=== PATIENT | female | born 1980 | race African-American/Black ===

== ENCOUNTER 2016-11-15 19:45 | Emergency (ER) | payer BC, OTHER ==
[~2016-11-15] VITALS: Ht 167.6 cm; Wt 90.7 kg
--- NOTE | ~2016-11-15 | EKG ---
[place], [place] ELECTROCARDIOGRAM REPORT NAME: RAFAEL HALE UNIT #: [id number] ROOM: DOCTOR: FRANCISCO DUNBAR MD BIRTHDATE: [birth year] DOS: 11/15/2016 TIME: 20:04:56 RATE AND RHYTHM: Sinus tachycardia at 108 beats per minute. MN interval 160 milliseconds, QRS duration 95 milliseconds, corrected QT interval 436 milliseconds, QRS axis 18. IMPRESSION: Normal EKG except for mild sinus tachycardia. FRANCISCO DUNBAR MD CM:EKGRPT:ELECTROCARDIOGRAM REPORT [id number] FRANCISCO DUNBAR MD
[~2016-11-15 19:45] MED LIST: ATIVAN1 MG PO; CIPRO500 MG PO; CIPROFLOXACIN500 MG PO; COLACE100 MG PO; DITROPAN5 MG PO; HYDROCODONE BIT1 T11 PO; MOTRIN800 MG PO; PERCOCET 325 MG1 TA2 PO; PREVACID SOLUTA30 MG PO; PROTONIX40 MG PO; REGLAN10 MG PO; ULTRAM50 MG PO; VICO75300 PO; VICODIN 5/500 505 MG PO; VICODIN1 TAB PO; VOLTAREN50 MG PO; ZOFRAN ODT4 MG SL; ZOFRAN ODT8 MG PO; ZOFRAN4 MG PO
[2016-11-15] MEDS ORDERED: ELMIRON100 MG PO (20:18)
[2016-11-15] MEDS ORDERED: PROMETHAZINE25 M1 PO (20:19)
[2016-11-15] MEDS ORDERED: URIBEL CAPSULE1 EACH PO (20:19)
[2016-11-15] MEDS ORDERED: MYRBETRIQ25 M1 PO (20:19)
[2016-11-15 20:21] LABS: BASO % 0.3 % (0.0-1.0); EOS # 0.1 10*3/uL (0.0-0.4); EOS % 0.9 % (1.0-4.0); HEMATOCRIT 37.3 % (37.0-47.0); HEMOGLOBIN 11.8 g/dl (12.0-16.0); LYMPH # 3.3 10*3/uL (1.3-4.4); LYMPH % 42.3 % (27.0-41.0); MEAN CELL VOLUME 87.4 fl (81.0-99.0); MEAN CORPUSCULAR HGB 27.6 pg (27.0-31.0); MEAN CORPUSCULAR HGB CONC 31.6 g/dl (33.0-37.0); MEAN PLATELET VOLUME 8.8 fl (9.6-12.3); MONO # 0.6 10*3/uL (0.1-1.0); NEUT # 3.8 10*3/uL (2.3-7.9); NEUT % 48.1 % (47.0-73.0); PLATELET COUNT AUTOMATED 370 10*3/uL (130-400); RED BLOOD COUNT 4.27 10*6/uL (4.10-5.10); RED CELL DISTRI WIDTH 13.5 % (0-14.5); WHITE BLOOD COUNT 7.8 10*3/uL (4.8-10.8)
[2016-11-15 20:32] LABS: BUN 7 mg/dl (7-24); CARBON DIOXIDE 23 mmol/L (21-32); CHLORIDE 104 mmol/L (98-107); EST GLOM FILT AFRICAN AMERICAN > 60 ml/min; GLUCOSE 226 mg/dL (65-99); SODIUM 139 mmol/L (136-145)
[2016-11-15 20:47] LABS: BILIRUBIN 1+ (NEGATIVE); BLOOD 1+ (NEGATIVE); CLARITY CLEAR (CLEAR); COLOR GREEN (YELLOW); GLUCOSE 2+ (NEGATIVE); KETONE 1+ (NEGATIVE); NITRITE NEGATIVE (NEGATIVE); PH 6.5 (5.0-9.0); PROTEIN TRACE (NEGATIVE); SPECIFIC GRAVITY 1.025 (1.005-1.030); UROBILINOGEN 0.2 E.U./dl (0.2-1.0)
[2016-11-15 20:55] LABS: LEUKO ESTERASE NEGATIVE (NEGATIVE); RBC 16-20 rbc/hpf (0-2)
[2016-11-15 20:56] LABS: CALCIUM OXALATE CRYSTALS 1+; MUCOUS TRACE; URINE REFLEX COMMENT YES (NO)
[2016-11-15 22:28] VITALS: BP 126/77
[2016-11-15] MEDS ORDERED: ZOFRAN4 MG PO (22:42)
[2016-11-15 22:56] LABS: HEMOGLOBIN A1c 5.7 % (4.8-5.6)
== END 2016-11-15 22:44 | disposition home or self-care (01) ==
LOC: ED 19:45
PROVIDERS: Emergency Medicine
DX: R73.9 Hyperglycemia, unspecified (principal); F41.9 Anxiety disorder, unspecified; E87.6 Hypokalemia; R10.30 Lower abdominal pain, unspecified

== ENCOUNTER 2018-03-29 18:16 | Emergency (ER) | payer BC ==
[~2018-03-29] VITALS: Ht 170.1 cm; Wt 90.7 kg
[~2018-03-29 18:16] MED LIST changes: +ELMIRON100 MG PO; +MYRBETRIQ25 M1 PO; +PROMETHAZINE25 M1 PO; +URIBEL CAPSULE1 EACH PO
[2018-03-29 18:45] LABS: BASO % 0.3 % (0.0-1.0); EOS # 0.1 10*3/uL (0.0-0.4); EOS % 0.6 % (1.0-4.0); HEMATOCRIT 36.3 % (37.0-47.0); HEMOGLOBIN 11.7 g/dl (12.0-16.0); LYMPH # 3.5 10*3/uL (1.3-4.4); LYMPH % 38.4 % (27.0-41.0); MEAN CELL VOLUME 86.8 fl (81.0-99.0); MEAN CORPUSCULAR HGB CONC 32.2 g/dl (33.0-37.0); MEAN PLATELET VOLUME 8.6 fl (9.6-12.3); MONO # 0.8 10*3/uL (0.1-1.0); MONO % 8.6 % (3.0-9.0); NEUT # 4.7 10*3/uL (2.3-7.9); NEUT % 51.9 % (47.0-73.0); PLATELET COUNT AUTOMATED 311 10*3/uL (130-400); RED BLOOD COUNT 4.18 10*6/uL (4.10-5.10); RED CELL DISTRI WIDTH 13.3 % (0-14.5)
[2018-03-29 18:56] LABS: INTERNATIONAL NORM RATIO 0.9 (2.0-3.5)
[2018-03-29 19:01] LABS: ALBUMIN 3.5 gm/dl (3.1-4.5); ALKALINE PHOSPHATASE 68 U/L (45-117); BUN 13 mg/dl (7-24); CHLORIDE 106 mmol/L (98-107); CREATININE 0.79 mg/dL (0.55-1.02); SGOT/AST 21 IU/L (3-35); SGPT/ALT 34 U/L (12-78); SODIUM 139 mmol/L (136-145); TOTAL PROTEIN 6.9 gm/dL (6.4-8.2)
[2018-03-29 19:03] LABS: B-hCG (QUALITATIVE) NEGATIVE (NEGATIVE); TROPONIN I < 0.015 ng/ml (<0.045)
[2018-03-29 19:35] VITALS: BP 137/84
[2018-03-29] MEDS ORDERED: NORCO 5-325 TA1 EACH PO (20:54)
== END 2018-03-29 21:02 | disposition home or self-care (01) ==
LOC: ED 18:16
PROVIDERS: Physician Assistant
DX: R00.0 Tachycardia, unspecified (principal); M77.52 Other enthesopathy of left foot and ankle; R42 Dizziness and giddiness

== ENCOUNTER → 2018-04-08 | Outpatient (CLI) | payer BC ==
[~2018-04-08] MED LIST changes: +NORCO 5-325 TA1 EACH PO
== END | disposition home or self-care (01) ==
LOC: CARD 09:26
DX: R00.0 Tachycardia, unspecified (principal)

== ENCOUNTER 2021-04-21 12:22 | Emergency (ER) | payer OTHER ==
[~2021-04-21] VITALS: Ht 167.6 cm; Wt 95.3 kg
[2021-04-21 12:27] VITALS: BP 166/92
[2021-04-21] MEDS ORDERED: PREDNISONE20 M1 PO (14:29)
[2021-04-21] MEDS ORDERED: PROVENTIL HFA6.7 GM INH (14:29)
== END 2021-04-21 14:39 | disposition home or self-care (01) ==
LOC: ED 12:22
DX: J40 Bronchitis, not specified as acute or chronic (principal); Z20.822 Contact with and (suspected) exposure to COVID-19; Z98.890 Other specified postprocedural states; Z98.51 Tubal ligation status; Z95.5 Presence of coronary angioplasty implant and graft

== ENCOUNTER → 2024-03-04 | Outpatient (CLI) | payer BC ==
[~2024-03-04] MED LIST changes: +ATENOLOL25 MG PO; +BUSPIRONE10 MG PO; +CELEXA40 MG PO; +METRONIDAZOLE500 M1 PO; +PREDNISONE20 M1 PO; +PROVENTIL HFA6.7 GM INH
[2024-03-04 10:00] LABS: BILIRUBIN Negative (Negative); BLOOD 2+ (Negative); CLARITY Clear (Clear); COLOR Yellow (Yellow); GLUCOSE Negative (Negative); KETONE Negative (Negative); LEUKO ESTERASE 1+ (Negative); NITRITE Negative (Negative); SPECIFIC GRAVITY 1.025 (1.001-1.030)
[2024-03-04 10:19] LABS: BACTERIA 2+; MUCOUS 1+; RBC 31-40 rbc/hpf (0-2); WBC 31-40 wbc/hpf (0-5)
[2024-03-04 10:23] LABS: ALKALINE PHOSPHATASE 64 U/L (46-116); BUN 10 mg/dl (9-23); CHLORIDE 105 mmol/L (98-107); POTASSIUM 3.8 mmol/L (3.4-5.1); SGPT/ALT 17 U/L (5-49); TOTAL PROTEIN 6.9 gm/dL (6.0-8.0)
== END | disposition home or self-care (01) ==
LOC: LAB 09:28
PROVIDERS: ATTEND Surgery
DX: N20.0 Calculus of kidney (principal); R20.2 Paresthesia of skin; F43.9 Reaction to severe stress, unspecified

== ENCOUNTER → 2024-03-15 | Outpatient (CLI) | payer BC ==
[~2024-03-15] MED LIST changes: +Technetium Tc 99M Sestamibi 1 KIT KIT IV SCH; +[UNRECOGNIZED DRUG - OTHER] SCH
== END ==
LOC: NM 10:00
PROVIDERS: ATTEND Internal Medicine
DX: E21.3 Hyperparathyroidism, unspecified (principal)

== ENCOUNTER → 2024-04-16 | Outpatient (CLI) | payer BC ==
[~2024-04-16] MED LIST changes: -Technetium Tc 99M Sestamibi 1 KIT KIT IV SCH; -[UNRECOGNIZED DRUG - OTHER] SCH
[2024-04-16 08:35] LABS: BASO % 0.3 % (0.0-1.0); EOS # 0.1 10*3/uL (0.0-0.4); EOS % 1.4 % (1.0-4.0); HEMATOCRIT 41.8 % (37.0-47.0); LYMPH # 2.6 10*3/uL (1.3-4.4); LYMPH % 45.1 % (27.0-41.0); MEAN CELL VOLUME 87.3 fl (81.0-99.0); MEAN CORPUSCULAR HGB 28.2 pg (27.0-31.0); MEAN CORPUSCULAR HGB CONC 32.3 g/dl (33.0-37.0); MONO # 0.5 10*3/uL (0.1-1.0); MONO % 8.5 % (3.0-9.0); NEUT # 2.6 10*3/uL (2.3-7.9); NEUT % 44.5 % (47.0-73.0); PLATELET COUNT AUTOMATED 321 10*3/uL (130-400); RED BLOOD COUNT 4.79 10*6/uL (4.10-5.10); RED CELL DISTRI WIDTH 14.1 % (0-14.5); WHITE BLOOD COUNT 5.9 10*3/uL (4.8-10.8)
[2024-04-16 09:04] LABS: ALKALINE PHOSPHATASE 69 U/L (46-116); BUN 9 mg/dl (9-23); CHLORIDE 105 mmol/L (98-107); CHOLESTEROL 164 mg/dL (<200); LDL CHOLESTEROL 74 mg/dL (9-159); POTASSIUM 3.7 mmol/L (3.4-5.1); SGPT/ALT 23 U/L (5-49); TRIGLYCERIDES 71 mg/dl (<150)
[2024-04-16 09:32] LABS: VITAMIN D, 25-HYDROXY 8.9 ng/mL (30-100)
== END | disposition home or self-care (01) ==
LOC: LAB 08:17 → RAD 08:30
PROVIDERS: ATTEND Internal Medicine
DX: I10 Essential (primary) hypertension (principal); E21.3 Hyperparathyroidism, unspecified; E61.1 Iron deficiency; G62.9 Polyneuropathy, unspecified; Z68.35 Body mass index [BMI] 35.0-35.9, adult

== ENCOUNTER → 2024-04-20 | Outpatient (CLI) | payer BC | END | disposition home or self-care (01) | LOC: LAB 09:10 | PROVIDERS: ATTEND Internal Medicine | DX: E21.3 Hyperparathyroidism, unspecified (principal); E61.1 Iron deficiency; I10 Essential (primary) hypertension; G62.9 Polyneuropathy, unspecified; Z68.35 Body mass index [BMI] 35.0-35.9, adult ==

== ENCOUNTER → 2025-07-28 | Outpatient (CLI) | payer BC | END | disposition home or self-care (01) | LOC: LAB 09:28 | PROVIDERS: ATTEND Internal Medicine | DX: E55.9 Vitamin D deficiency, unspecified (principal) ==